=== PATIENT | male | born 1985 ===

== ENCOUNTER 2024-02-28 07:18 | Emergency (ER) | payer OTHER ==
[~2024-02-28 07:18] MED LIST: SODIUM CHLORIDE 0.9% 1,000 ML BAG ONE
[2024-02-28] MEDS ORDERED: ONDANSETRON 4 MG/2 ML VIAL ONE (07:39)
[2024-02-28] MEDS ORDERED: KETOROLAC 15 MG/ML 1 ML VIAL ONE (07:39)
[2024-02-28] MEDS ORDERED: HYDROmorphone 0.5 MG/0.5 ML SYRINGE ONE (07:47)
[2024-02-28] MEDS ORDERED: ACET/COD 300 MG/30 MG STARTER PACK 6 TAB BTL PO ONE (09:13)
--- NOTE | 2024-03-30 15:13 | CT ---
EXAM: CT abdomen and pelvis without contrast. DATE: 02/28/2024 08:49 INDICATION: Patient age:JARRELL SARGENT : 1985 Reason for study: RENAL STONE, TESTICULAR PAIN COMPARISON: None, please note PACS downtime occurred during the radiologist interpretation of these i mages with limited priors/reports.. TECHNIQUE: CT of the pelvis without contrast., with axial imaging and sagittal and coronal reformats without IV or oral contrast. Lack of IV or oral contrast limits evaluation of solid and hollow organ viscera.. O ne or more CT dose reduction strategies were utilized during this examination. Total DLP administered was 438 mGycm. FINDINGS: LOWER CHEST: Unremarkable ABDOMEN LIVER: Unremarkable GALLBLADDER AND BILE DUCTS: Unremarkable. PANCREAS: Unremarkable. SPLEEN: Unremarkable. ADRENAL GLANDS: Unremarkable. KIDNEYS AND URETERS: Mild left hydronephrosis secondary to obstructing 5 mm calculus at the distal ur eter near the ureterovesicular junction. No right renal calculi. No right hydronephrosis. PELVIS BLADDER: Unremarkable REPRODUCTIVE: Unremarkable. ABDOMEN & PELVIS STOMACH AND BOWEL: Stomach and duodenum are unremarkable. No evidence of bowel obstruction. PERITONEUM: No evidence of pneumoperitoneum or free fluid. VASCULATURE: No evidence of aortic aneurysm. MUSCULOSKELETAL: No acute osseous abnormalities LYMPH NODES: No gross evidence for lymphadenopathy. SOFT TISSUE/ABDOMINAL WALL: Unremarkable IMPRESSION: 1. Mild left hydronephrosis secondary to obstructing 5 mm calculus at the distal ureter near the ure terovesicular junction. No right renal calculi. No right hydronephrosis. 2.
== END 2024-02-28 09:00 | disposition home or self-care (01) ==
LOC: EC 07:18
DX: N13.2 Hydronephrosis with renal and ureteral calculous obstruction (principal)
CPT/HCPCS: 74176; 99283; 96374; 96375 ×2; 96361; J2405; J1885; J1170